=== PATIENT | female | born 1985 | race African-American/Black ===

== ENCOUNTER 2024-05-07 17:13 | Emergency (ER) | payer SELFPAY ==
[~2024-05-07] VITALS: Ht 175.3 cm; Wt 86.2 kg
[2024-05-07 17:19] VITALS: TEMP 97.8
[2024-05-07 17:51] VITALS: PULSE 89; RESP 18; O2SAT 96
[2024-05-07] MEDS ORDERED: IOPAMIDOL 370 MG/ML 100 ML INFUS..BTL INJ ONE (17:54)
[2024-05-07] MEDS: KETOROLAC TROMETHAMINE 30 MG/ML VIAL IV ONE (18:03)
[2024-05-07] MEDS ORDERED: BACTRIM DS TAB1 EACH PO (20:16)
== END 2024-05-07 19:00 | disposition home or self-care (01) ==
LOC: FSED 17:17
DX: R06.02 Shortness of breath (principal); R07.9 Chest pain, unspecified; E11.65 Type 2 diabetes mellitus with hyperglycemia; E78.5 Hyperlipidemia, unspecified; Z86.711 Personal history of pulmonary embolism
CPT/HCPCS: 71260; 80048; 81025; 84484; 85025; 93005; 99284; J1885; Q9967